=== PATIENT | male | born 1945 | race Caucasian/White ===

== ENCOUNTER 2019-09-09 09:17 | Emergency (ER) | payer OTHER ==
[~2019-09-09] VITALS: Ht 182.9 cm; Wt 86.2 kg
[2019-09-09 10:22] LABS: HEMATOCRIT 44.1 % (42.0-52.0); HEMOGLOBIN 14.7 gm/dL (14.0-18.0); MCH 30.4 pg (26.0-34.0); MCHC 33.2 g/dL (28.0-37.0); MCV 91.5 fL (80.0-100.0); PLATELET COUNT 203 thou/uL (150-400); RBC 4.83 mil/uL (4.50-6.00); RDW 14.2 % (10.5-14.5); WBC 9.4 thou/uL (4.0-11.0)
[2019-09-09 10:29] LABS: CALCIUM 8.6 mg/dL (8.5-10.1); POTASSIUM 4.3 mmol/L (3.5-5.1)
[2019-09-09 10:35] LABS: URINE BILIRUBIN 1+ (Negative); URINE BLOOD 2+ (Negative); URINE CLARITY CLEAR; URINE COLOR YELLOW; URINE GLUCOSE-RANDOM* NEGATIVE (Negative); URINE KETONES 1+ (Negative); URINE LEUKOCYTES-REFLEX NEGATIVE (Negative); URINE NITRITE-REFLEX NEGATIVE (Negative); URINE PROTEIN (DIPSTICK) 3+ (Negative); URINE SPECIFIC GRAVITY >= 1.030 (1.005-1.035); URINE UROBILINOGEN 0.2 E.U./dl (0.2-1.0)
[2019-09-09 10:36] LABS: ALBUMIN 3.8 g/dL (3.4-5.0); DIRECT BILIRUBIN 0.2 mg/dL (<0.1-0.2); TOTAL BILIRUBIN 1.4 mg/dL (<0.1-1.0); TOTAL PROTEIN 7.9 g/dL (6.4-8.2)
[2019-09-09 10:41] LABS: ICTOTEST (BILI CONFIRMATORY) Negative (Negative)
[2019-09-09 10:44] LABS: ABSOLUTE NEUTROPHILS 7.9 thou/uL (1.4-8.2)
[2019-09-09 10:45] LABS: PLATELET ESTIMATE NORMAL
[2019-09-09 10:46] LABS: MUCUS 0-3 Light strn/LPF (None Seen)
[2019-09-09 10:47] LABS: CRYSTALS None Seen /LPF (None Seen); HYALINE CASTS 0-3 Few /LPF (None Seen); SQUAMOUS 0-3 Few /LPF (0-3)
[2019-09-09 10:49] LABS: BACTERIA-REFLEX None Seen /HPF (None Seen); URINE RBC 3-10 Few /HPF (0-2); URINE WBC-REFLEX 0-5 Rare /HPF (0-5)
[2019-09-09] MEDS ORDERED: LEVAQUIN 500 M500 M1 PO (12:18)
[2019-09-09 12:37] VITALS: BP 150/95
== END 2019-09-09 12:38 | disposition home or self-care (01) ==
LOC: ER 09:17
PROVIDERS: Emergency Medicine
DX: J18.9 Pneumonia, unspecified organism (principal); Z20.828 Contact with and (suspected) exposure to other viral communicable diseases; I10 Essential (primary) hypertension; K21.9 Gastro-esophageal reflux disease without esophagitis; Z88.6 Allergy status to analgesic agent

== ENCOUNTER → 2019-09-29 | Outpatient (CLI) | payer OTHER ==
[~2019-09-29] MED LIST: LEVAQUIN 500 M500 M1 PO
== END ==
LOC: RAD 11:11
PROVIDERS: ATTEND Internal Medicine
DX: J18.9 Pneumonia, unspecified organism (principal)

== ENCOUNTER → 2020-01-08 | Outpatient (CLI) | payer OTHER ==
[~2020-01-08] MED LIST changes: +MULTIVITAMINS1 EAC7 PO; +ZESTRIL20 MG PO
== END ==
LOC: LAB 09:38
PROVIDERS: ATTEND Specialist
DX: Z01.812 Encounter for preprocedural laboratory examination (principal); Z20.828 Contact with and (suspected) exposure to other viral communicable diseases

== ENCOUNTER → 2020-01-11 | Outpatient (CLI) | payer OTHER ==
[~2020-01-11] VITALS: Ht 182.9 cm; Wt 79.4 kg
--- NOTE | 2020-01-11 12:36 | P ---
[facility] [place] [address] PROCEDURE REPORT Name: REILLY ALVAREZ Room #: REG [facility] M..#: [id number] Admission: 01/11/20 Attend Phys: Cain Leroy MD Discharge: Date of : 49 Report #: [id number] THIS REPORT FOR: cc: Cain Baxter MD, John M. MD Thesing, John A. MD ~ CC: Cain Leroy DATE OF SERVICE: 01/11/2020 OUTPATIENT COLONOSCOPY REPORT BRIEF HISTORY: The patient is a 74-year-old male with history of colon polyps and also family history of colon cancer. PREOPERATIVE DIAGNOSIS: High risk screening colonoscopy. POSTOPERATIVE DIAGNOSIS: Moderately severe diverticulosis coli, greater in the left colon than the right colon. MEDICATIONS: Deep sedation with propofol per anesthesia. SPECIMEN: None. ESTIMATED BLOOD LOSS: None. PROCEDURE: Colonoscopy to cecum and terminal ileum. FINDINGS: Prior to propofol sedation, procedure of colonoscopy discussed with the patient as well as potential risks and its complications. He indicates he understands and desires to proceed. DESCRIPTION OF PROCEDURE: With the patient in the left lateral decubitus position, digital examination was completed, which revealed no abnormalities. Subsequently, the Olympus video colonoscope was introduced into the rectum, advanced under direct vision to the cecum. Cecum was identified by the ileocecal valve and the appendiceal orifice. I was able to visualize the distal segment of terminal ileum, which was inspected and noted to be unremarkable. At that point, the scope was slowly withdrawn and careful circumferential views obtained. Upon slow withdrawal of the scope, the prep was good. The mucosa was within normal limits, normal vascular pattern, normal light reflex. As we withdrew the scope, no neoplastic lesions were seen. He was noted to have scattered diverticula in the proximal colon, but moderately severe diverticular disease of the left colon, particularly in the sigmoid colon. There was no [facility] [address] [place] [address] PROCEDURE REPORT Name: REILLY ALVAREZ Room #: REG [facility].#: [id number] Admission: 01/11/20 Attend Phys: Cain Leroy MD Discharge: Date of : 49 Report #: [id number] endoscopic evidence of diverticulitis. Scope was withdrawn in the rectum, no abnormalities were seen. Upon retroflexion, no abnormalities were seen. Scope was withdrawn. The patient tolerated the procedure well. CONDITION OF THE PATIENT UPON DISCHARGE: Following procedure, the patient was drowsy, aroused, conversant, and will be discharged to home when fully ambulatory. INSTRUCTIONS TO THE PATIENT AND FAMILY AT THE TIME OF DISCHARGE: No neoplastic lesions seen today. He has had colon adenomas and had multiple colon adenomas at his last colonoscopy. His mother had colon cancer at age 90; however, his mother's sister had colon cancer when she was in her 60s. I suggest return in 5 years for followup colonoscopy. He will otherwise return to the care of Dr. Cain Baxter. <ELECTRONICALLY SIGNED> By: Cain Leroy MD 01/11/20 1236 [id number] 1222 Cain Leroy MD /nt
== END | disposition home or self-care (01) ==
LOC: GI 08:38
PROVIDERS: ATTEND Specialist
DX: Z12.11 Encounter for screening for malignant neoplasm of colon (principal); Z86.010 Personal history of colon polyps; Z80.0 Family history of malignant neoplasm of digestive organs; K57.30 Diverticulosis of large intestine without perforation or abscess without bleeding; I10 Essential (primary) hypertension; G47.30 Sleep apnea, unspecified; Z98.890 Other specified postprocedural states; Z79.899 Other long term (current) drug therapy; Z87.891 Personal history of nicotine dependence; Z98.41 Cataract extraction status, right eye; Z98.42 Cataract extraction status, left eye; Z88.8 Allergy status to other drugs, medicaments and biological substances
CPT/HCPCS: 62110; 62900